=== PATIENT | female | born 1995 | race Caucasian/White ===

== ENCOUNTER 2024-08-11 15:52 | Emergency (ER) | payer OTHER, SELFPAY ==
[2024-08-11 15:53] VITALS: BMI 27.3
[2024-08-11 16:04] VITALS: BP 131/82; PULSE 86; RESP 20; TEMP 37.3; O2SAT 100
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
[2024-08-11 17:28] LABS: HCG Qualitative,Urine Negative
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
[2024-08-11] MEDS: CYCLObenzaPRINE 5 MG TABLET 10 MG PO (18:41)
[2024-08-11] MEDS: ACETAMINOPHEN 500 MG TABLET 1000 MG PO (18:43)
== END 2024-08-11 18:51 | disposition home or self-care (01) ==
PROVIDERS: Nurse Practitioner Primary Care; Emergency Provider Emergency Medicine
DX: S13.4XXA Sprain of ligaments of cervical spine, initial encounter (principal); S09.90XA Unspecified injury of head, initial encounter; S29.9XXA Unspecified injury of thorax, initial encounter; S39.91XA Unspecified injury of abdomen, initial encounter; V89.2XXA Person injured in unspecified motor-vehicle accident, traffic, initial encounter
CPT/HCPCS: 70450; 71250; 72125; 74176; 81025; 99284; A9270